=== PATIENT | female | born 1980 | race Two or more races ===

== ENCOUNTER 2025-04-26 17:04 | Emergency (ER) | payer MEDICAID, OTHER ==
[~2025-04-26] VITALS: Ht 152.4 cm; Wt 86.4 kg
--- NOTE | 2025-04-26 19:35 | ED.PDOC ---
Musculoskeletal HPI Comments 45-year-old female presents to ER with complaints of left foot pain x one day. Patient reports that she started experiencing 8/10 left foot pain with associated numbness to left foot at 2:30 p.m. today when she went to step down one step outside of her home. Denies falling but states she is able to bear minimal weight on left leg due to left foot pain. Denies use of medications for current symptoms and denies left ankle pain or any further symptoms/complaints Chief Complaint: Lower Extremity Time Seen by MD: 18:13 Primary Care Provider: UNKNOWN Reviewed Notes: Nurses Notes, Medications, Allergies Allergies: Coded Allergies: NO KNOWN ALLERGIES (Unverified , 04/26/25) Home Meds Active Scripts Acetaminophen (Acetaminophen) 500 Mg Tab, 500 MG PO Q4HPRN, #30 TAB 0 Refills Prov:ANA M ZAMUDIO 04/26/25 Information Source: Patient Mode of Arrival: Wheelchair Past Medical History PAST MEDICAL HISTORY: Denies Surgical History: Appendectomy, Cholecystectomy Surgical History (Other): Right-sided nephrectomy INFORMATION TECHNOLOGY AUDITOR History: No Pertinent INFORMATION TECHNOLOGY AUDITOR History Family History Family History: Unknown Social History Smoker: Non-Smoker Alcohol: Denies ETOH Use Drugs: Denies Drug Use Lives In: Home Constitutional: denies: chills, diaphoresis, fatigue, fever, malaise, sweats, weakness, others EENTM: denies: blurred vision, double vision, ear bleeding, ear discharge, ear drainage, ear pain, ear ringing, eye pain, eye redness, hearing loss, mouth pain, mouth swelling, nasal discharge, nose bleeding, nose congestion, nose pain, photophobia, tearing, throat pain, throat swelling, voice changes, others Respiratory: denies: cough, hemoptysis, orthopnea, SOB at rest, shortness of breath, SOB with excertion, stridor, wheezing, others Cardiovascular: denies: chest pain, dizzy spells, diaphoresis, Dyspnea on exertion, edema, irregular heart beat, left arm pain, lightheadedness, palpitations, PND, syncope, others Gastrointestinal: denies: abdomen distended, abdominal pain, blood streaked bowels, constipated, diarrhea, dysphagia, difficulty swallowing, hematemesis, melena, nausea, poor appetite, poor fluid intake, rectal bleeding, rectal pain, vomiting, others Genitourinary: denies: abnormal vagina bleeding, burning, dyspareunia, dysuria, flank pain, frequency, hematuria, incontinence, pain, , vagina discharge, urgency, others Neurological: denies: dizziness, fainting, headache, left sided numbness, left sided weakness, numbness, paresthesia, pre-existing deficit, right sided numbness, right sided weakness, seizure, speech problems, tingling, tremors, weakness, others Musculoskeletal: reports: others (As stated in HPI) Allergic/Immunocompromised: denies: Difficulty Healing, Frequent Infections, Hives, Itching, others Hematologic/Lymphatic: denies: anemia, blood clots, easy bleeding, easy bruising, swollen glands, others Endocrine: denies: excessive hunger, excessive sweating, excessive thirst, excessive urination, flushing, intolerance to cold, intolerance to heat, unexplained weight gain, unexplained weight loss, others Psychiatric: denies: anxiety, bipolar disorder, depression, hopeless, panic disorder, schizophrenia, sleepless, suicidal, others Physical Exam General Appearance: No Apparent Distress, Obese HEENT: PERRL/EOMI Neck: Full Range of Motion, Non-Tender, Normal Respiratory: Chest Non-Tender, Lungs Clear, No Accessory Muscle Use, No Respiratory Distress, Normal Breath Sounds Cardiovascular: No Murmur, No Gallop, Regular Rate/Rhythm Breast Exam: Deferred Gastrointestinal: NOT DONE Genitalia: Deferred Pelvic: Deferred Rectal: Deferred Extremities: Normal capillary refill, Normal range of motion Musculoskeletal : Extremity Location: Foot (TTP to lateral aspect of left foot. No skin changes noted. Patient able to bear minimum weight on left leg due to pain local ized to lateral aspect of left foot) Neurologic: Alert, No Motor Deficits, Normal Affect, Normal Mood, No Sensory Deficits Cerebellar Function: Normal Reflexes: Normal Skin: Dry, Normal Color, Warm Peripheral Pulses: 2+ dorsalis pedis (R), 2+ dorsalis pedis (L), 2+ Radial (R), 2+ Radial (L), 2+ Brachial (R), 2+ Brachial (L) Lymphatic: No Adenopathy Was a procedure done? Was a procedure done?: No Sedation Sedation?: No Differential Diagnosis EXT Differential Diagnosis: Fracture, Dislocation, Neurovascular injury X-Ray, Labs, Meds, VS Vital Signs Date Time Temp Pulse Resp B/P (MAP) Pulse Ox O2 Delivery O2 Flow Rate FiO2 10/5/25 19:47 70 19 97 Room Air 04/26/25 19:47 98.4 70 19 129/69 (89) 97 98.4 04/26/25 17:05 98.1 79 16 132/97 100 98.1 Current Medications Medications (Trade) Dose Ordered Sig/Betsy Route Start Time Stop Time Status Last Admin Acetaminophen/ Hydrocodone Bitart ([place] 5/325MG Tab) 1 tab ONCE ONCE PO 04/26/25 19:30 04/26/25 19:31 DC 04/26/25 19:45 PATIENT: BARTOLO YADAVCCT: [id number]: [id number] : 1980 LOC: ER ROOM / BED: / AGE / SEX: 45 / F ADM STATUS: REG ER SERVICE 26 ORDERING PHYSICIAN: ANA M ZAMUDIO PROCEDURE(s): LFOOT - L FOOT 3 VIEW XRAY REASON: left foot pain ORDER NUMBER(s): [id number], ACCESSION NUMBER(s): [id number] CLINICAL INDICATION: left foot pain TECHNIQUE: XY L FOOT 3 VIEW XRAY Comparison: None FINDINGS/IMPRESSION: : There is no evidence of acute fracture or dislocation. Soft tissues are unremarkable. ATED BY: LUIS NICHOLS MD DICTATED DATE/TIME: 04/26/252001 SIGNED BY: LUIS NICHOLS MD SIGNED DATE/TIME: 04/26/252001 CC: Left foot x-ray reviewed Rose[place] 5/325 mg p.o. ordered Patient neurovascularly intact Advised on elevation and alternate ice on/off as needed for pain Crutches ordered, patient educated on proper use Advised to f/u with PCP in 1-2 days Patient verbalized understanding and agreeable with current plan of care Advised to return to ER immediately if symptoms worsen Time of 1ST Reevaluation: 19:24 Reevaluation 1ST: N/A Patient Education/Counseling: Diagnosis, Treatment, Prognosis, Need For Follow Up Family Education/Counseling: Diagnosis, Treatment, Prognosis, Need For Follow Up Departure 1 Departure Time of Disposition: 19:40 Impression: Primary Impression: Sprain of left foot Qualified Codes: S93.602A - Unspecified sprain of left foot, initial encounter Disposition: HOME / SELF CARE / HOMELESS Condition: Stable e-Prescriptions Acetaminophen (Acetaminophen) 500 Mg Tab 500 MG PO Q4HPRN, #30 TAB 0 Refills Prov: ANA M ZAMUDIO 04/26/25 Discharged With: Friend Critical Care Note Critical Care Time?: No Stability Stability form required: No Heart Score Heart Score: Heart Score Response (Comments) Value History N/A 0 EKG N/A 0 Age N/A 0 Risk Factors N/A 0 Troponin N/A 0 Total 0 ANA M ZAMUDIO Apr 26, 2025 19:35
[2025-04-26] MEDS ORDERED: ACET500T58 PO (19:42)
[2025-04-26] MEDS: HYDROcodone-ACET 5/325MG TAB PO ONE (19:45)
[2025-04-26 19:47] VITALS: BP 129/69; PULSE 70; RESP 19; TEMP 98.4; O2SAT 97
--- NOTE | 2025-04-26 20:05 | DVH ---
CLINICAL INDICATION: left foot pain TECHNIQUE: XY L FOOT 3 VIEW XRAY Comparison: None FINDINGS/IMPRESSION: : There is no evidence of acute fracture or dislocation. Soft tissues are unremarkable.
== END 2025-04-26 20:36 | disposition home or self-care (01) ==
LOC: ER 17:04
DX: S93.602A Unspecified sprain of left foot, initial encounter (principal); Z90.5 Acquired absence of kidney; Z90.49 Acquired absence of other specified parts of digestive tract; Z79.899 Other long term (current) drug therapy; X58.XXXA Exposure to other specified factors, initial encounter; Y93.89 Activity, other specified; Y92.89 Other specified places as the place of occurrence of the external cause; Y99.8 Other external cause status
CPT/HCPCS: 73630